=== PATIENT | female | born 2000 | race Caucasian/White ===

== ENCOUNTER 2022-12-16 15:35 | Emergency (ER) | payer OTHER, BC, SELFPAY ==
[2022-12-16 15:46] VITALS: BP 102/62; PULSE 81; RESP 16; TEMP 36.6; O2SAT 100
--- NOTE | 2022-12-16 15:47 | ED.FEMALEGU ---
HPI - Female Genitourinary General Chief complaint: Urogenital-Female Stated complaint: Urinary Problems/Pain Source: patient, family and RN notes reviewed History of Present Illness HPI Narrative: 22 yo F presents to urgent care with mom at side. Pt states she started to feel a discomfort in her genital region on . Pt reports it burning when she urinates and pain when she sits down or touches the area. Pt reports swelling and possible blisters. Denies any fevers, chills, abdominal pain, vomiting, or vaginal discharge. Related Data Allergies Allergy/AdvReac Type Severity Reaction Status Date / Time No Known Allergies Allergy Verified 12/16/22 15:44 Review of Systems Review of Systems: CONSTITUTIONAL: Denies fever, chills, or sweats. EYES: Denies visual changes, redness, or discharge. ENT: Denies otalgia and sore throat CARDIOVASCULAR: Denies chest pain, palpitations, or edema. RESPIRATORY: Denies cough or dyspnea. GASTROINTESTINAL: Denies abdominal pain, nausea, vomiting, or diarrhea. GENITOURINARY: danielle with urination, swelling and blisters to vaginal area SKIN: Denies rash or itching. MUSCULOSKELETAL: Denies back pain, joint pain, or myalgia. NEUROLOGIC: Denies headache, numbness, or weakness. Pertinent positives per HPI. PMFSH Comments At the time of my signature, I reviewed and agree with the nursing past medical, surgical, social, and family history. There is no relevant family history pertinent to the patient complaint. Exam Narrative: GENERAL: This is a well-nourished, well-developed patient, in no apparent distress. HEAD: normocephalic, atraumatic. EYES: Sclera clear/white. Vision is grossly intact. EARS: External ears normal, auditory canals clear and without drainage. Hearing grossly intact. NOSE: External nose normal with no obvious nasal discharge, nares without redness, no rhinorrhea. THROAT: Mucous membranes moist, posterior pharynx clear. NECK: Neck supple, non-tender without lymphadenopathy, masses or thyromegaly. CARDIOVASCULAR: Regular rate and rhythm without murmurs, gallops, or rubs. RESPIRATORY: Clear to auscultation. Breath sounds equal bilaterally. No wheezes, rales, or rhonchi. GASTROINTESTINAL: Abdomen soft, non-tender, nondistended. Bowel sounds are active. No hepato-splenomegaly, or palpable masses. No guarding. GENITOURINARY: multiple, edematous, erythremic, papules and blisters to labia minora and vaginal os, tender. SKIN: warm, intact with no suspicious lesions or rash, good texture and turgor. NEURO: awake, alert, and oriented to person, place and time. There were no obvious focal neurologic abnormalities. Course Course Level of Care: Express Care Visit Vital Signs Vital signs: Vital Signs Temperature 98 F 12/16/22 15:46 Pulse Rate 81 12/16/22 15:46 Respiratory Rate 16 12/16/22 15:46 Blood Pressure 102/62 12/16/22 15:46 Pulse Oximetry 100 12/16/22 15:46 Temperature 98 F 12/16/22 15:46 Pulse Rate 81 12/16/22 15:46 Respiratory Rate 16 12/16/22 15:46 Blood Pressure 102/62 12/16/22 15:46 Pulse Oximetry 100 12/16/22 15:46 reviewed MDM - Female Genitourinary MDM Narrative Medical decision making narrative: Take the antiviral medication as directed. May apply the topical lidocaine 3x/day for discomfort. Follow up with your net manager. Differential Diagnosis Differential diagnosis: Likely urinary tract infection, vaginitis and other (STI, HSV) Lab Data Attestation: I reviewed the patient's lab results. Critical Care Time Critical Care Time Critical Care Time: No Discharge Plan Discharge Clinical Impression: HSV (herpes simplex virus) infection Patient Disposition: Home, Self-Care Condition: Stable Instructions: Genital Herpes Infection (ED) Additional Instructions: Take the antiviral medication as directed. May apply the topical lidocaine 3x/day for discomfort. Follow up with your net manager.
== END 2022-12-16 16:10 | disposition home or self-care (01) ==
PROVIDERS: Emergency Provider Nurse Practitioner Family; PCP Family Medicine
DX: A60.00 Herpesviral infection of urogenital system, unspecified (principal)
CPT/HCPCS: 81003; 87255; 99203; G0463

== ENCOUNTER 2023-03-12 08:30 | Emergency (ER) | payer BC, SELFPAY ==
--- NOTE | 2023-03-12 08:37 | ED.URI ---
HPI - URI/Sore Throat General Chief Complaint: Upper Respiratory Infection Stated Complaint: Strep symptoms;Ear pain Time Seen by Provider: 03/12/23 09:18 Source: patient and RN notes reviewed Mode of arrival: ambulatory Limitations: no limitations History of Present Illness HPI Narrative: 22-year-old female presents with concern for sore throat, left ear pain that started last night. She reports painful swallowing. She reports low-grade temperature. She is spitting her saliva because of painful swelling. Reports she is able to swallow. MD elicited complaint: sore throat Related Data Allergies Allergy/AdvReac Type Severity Reaction Status Date / Time No Known Allergies Allergy Verified 12/16/22 15:44 Review of Systems Review of Systems: CONSTITUTIONAL: Denies malaise, low-grade fever. EYES: Denies visual changes, redness, or discharge. ENT: Reports painful swallowing left ear pain, and sore throat. CARDIOVASCULAR: Denies chest pain, palpitations, or edema. RESPIRATORY: Reports cough. Denies dyspnea. GASTROINTESTINAL: Denies abdominal pain, nausea, vomiting, diarrhea SKIN: Denies rash or itching. MUSCULOSKELETAL: Denies myalgia. NEUROLOGIC: Denies headache. All systems reviewed & are unremarkable except as noted in HPI and below PMFSH Comments At time of signature, agree with nursing past medical, surgical, social and family history. There is no relevant family history pertinent to the presenting complaint Exam Narrative: GENERAL: Nontoxic-appearing, well-nourished, and in no acute distress. HEAD: Normocephalic EYES: PERRLA, conjunctivae clear ENT: Nares clear. Mucous membranes moist. TM pearly [place] with sharp light reflex bilaterally; no tragal tenderness. Oropharynx erythematous without lesions. Tonsils mildly enlarged with copious amount of exudate, no drooling, no hoarseness, no trismus, uvula midline. NECK: Supple. No lymphadenopathy CHEST: Clear to auscultation, breath sounds equal. No wheezing, rhonchi, rales, or stridor. No respiratory distress, speaks in full sentences. HEART: Regular rate and rhythm. No murmur heard. SKIN: Warm, dry, no rash. NEURO: Alert and oriented x3. PSYCH: Normal mood and affect Course Course Emergency Course: Patient is aware of diagnosis, understands and agrees to treatment plan. Anticipatory guidance given. Patient agrees to follow-up as directed and is aware of reasons to seek care at the emergency department. Portions of this record may have been created with voice recognition software Level of Care: Express Care Visit Vital Signs Vital signs: Reviewed. MDM - URI/Sore Throat MDM Narrative Medical decision making narrative: Differential diagnosis considered: Webster virus, strep pharyngitis, allergic rhinitis, upper respiratory tract infection, sinusitis, rhinosinusitis, nasopharyngitis. viral pharyngitis, otitis media, otitis externa, pneumonia, bronchitis, viral cough syndrome, viral syndrome, and influenza. Exam findings show no acute concerns or changes; patient is non-toxic appearing and is in no distress. Patient is appropriate for outpatient treatment and follow-up. Lab Data Attestation: I reviewed the patient's lab results. Critical Care Time Critical Care Time Critical Care Time: No Discharge Plan Discharge Clinical Impression: Acute tonsillitis Patient Disposition: Home, Self-Care Condition: Stable Instructions: Antibiotic Form, Tonsillitis (ED) Additional Instructions: Your rapid strep swab was negative today at [facility]. However, because your tonsils with potentially infected I will started antibiotic for tonsillitis. If your tonsillitis is caused by a virus the body has to fight the virus off, antibiotics do not work for a virus. -Alternate Tylenol every 4 hours and Motrin every 6 hours per package directions for fever or pain. -Antihistamine medication such as Benadryl at night and Zyrtec during the day can help improve symptoms
[2023-03-12 08:44] VITALS: BP 102/67; PULSE 96; RESP 18; TEMP 37.7; O2SAT 99
== END 2023-03-12 09:29 | disposition home or self-care (01) ==
PROVIDERS: Emergency Provider Nurse Practitioner; PCP Family Medicine
DX: J03.90 Acute tonsillitis, unspecified (principal)
CPT/HCPCS: 87081; 87880; 99213; G0463

== ENCOUNTER 2024-02-27 16:57 | Emergency (ER) | payer OTHER, SELFPAY ==
--- NOTE | ~2024-02-27 | XR_ITS ---
EXAMINATION: XR chest 2V DATE: 02/27/2024 17:42 INDICATION: Cough and shortness of breath. TECHNIQUE: Frontal and lateral views of the chest were obtained. COMPARISON: None. FINDINGS: There is no pneumonia, pleural effusion, or pneumothorax. The heart size is normal. IMPRESSION: 1. No acute cardiopulmonary disease. Reviewed, dictated and finalized at location A. FACTURING PRODUCTION MANAGER
[2024-02-27 17:31] VITALS: BP 132/73; PULSE 83; RESP 16; TEMP 36.9; O2SAT 100
--- NOTE | 2024-02-27 17:34 | ED_ITS ---
HPI - URI/Sore Throat General Chief Complaint: Upper Respiratory Infection Stated Complaint: SOB/COUGH/WHEEZING Time Seen by Provider: 02/27/24 17:45 Source: patient Mode of arrival: ambulatory Limitations: no limitations History of Present Illness HPI Narrative: Yari is a 23-year-old female patient presenting to the clinic today with complaints of shortness of breath, cough, and wheezing x5 days. Patient reports that the shortness of breath has gotten worse over the last 24 hours. Is coughing up some green phlegm. Had low-grade fever and chills at the beginning of her illness however she is not having any symptoms now. MD elicited complaint: cough, nasal congestion and other (Shortness of breath, chest congestion, wheezing) Related Data Home Medications ?Medication ?Instructions ?Recorded ?Confirmed ?Last Taken ?Type drospirenone 3 mg-ethinyl tablet 02/27/24 Unknown History estradiol 0.02 mg tablet (Vestura (28)) Allergies Allergy/AdvReac Type Severity Reaction Status Date / Time No Known Allergies Allergy Verified 02/27/24 17:37 Review of Systems Review of Systems: Pertinent positives per HPI. Patient denies any rash, headache, visual changes, dizziness, chest pain, palpitations, nausea, vomiting, diarrhea, constipation, abdominal pain, or any urinary issues. PMFSH Comments At the time of my signature, I reviewed and agree with the nursing past medical, surgical, social, and family history. There is no relevant family history pertinent to the patient complaint. Exam Narrative: General: Well-developed, well nourished, in no apparent distress Head: Normocephalic, atraumatic Eyes: Pupils equally round and reactive to light bilaterally, EOM intact, sclera and conjunctive clear, no discharge, lids normal Ears: TMs intact and clear, ear canals clear, no drainage, grossly hearing norm al. Nose: Nares patent, clear nasal discharge, no inflammation, no sinus tenderness. Mouth: Oral pharynx without lesions or masses, good dentition, MMM. Neck: Supple, trachea midline, no enlargement of anterior or posterior cervical nodes, no thyroid masses or goiter palpable. Cardio: Regular rate and rhythm, s1 and s2 normal, no murmur appreciated. Resp: Clear to auscultation bilaterally, no rhonchi, rales, wheezing or rubs Course Course Emergency Course: Portions of this record may have been created with voice recognition software. Level of Care: Express Care Visit Vital Signs Vital signs: Vital Signs Temperature 36.9 C 02/27/24 17:31 Pulse Rate 83 02/27/24 17:31 Respiratory Rate 16 02/27/24 17:31 Blood Pressure 132/73 02/27/24 17:31 Pulse Oximetry 100 02/27/24 17:31 Temperature 36.9 C 02/27/24 17:31 Pulse Rate 83 02/27/24 17:31 Respiratory Rate 16 02/27/24 17:31 Blood Pressure 132/73 02/27/24 17:31 Pulse Oximetry 100 02/27/24 17:31 Vital signs reviewed MDM - URI/Sore Throat MDM Narrative Medical decision making narrative: At the time of visit patient is resting comfortably on the exam table. Patient appears to be nontoxic. Diagnostics: Chest x-ray was performed and was negative for any acute cardiopulmonary process. Plan: I suspect patient has bronchitis. Prescription for prednisone and albuterol inhaler was prescribed. Supportive measures were discussed with the patient and they voiced understanding discharge instructions and agrees to treatment plan. Return precautions reviewed Differential Diagnosis Differential diagnosis: Likely upper respiratory infection, otitis media, sinusitis, viral infection, bronchitis, influenza, pharyngitis and other (COVID) Imaging Data Radiologist's impression: ITS Impressions Chest X-Ray 02/27/24 17:46 IMPRESSION: 1. No acute cardiopulmonary disease. Discharge Plan Discharge Clinical Impression: Bronchitis Patient Disposition: Home, Self-Care Condition: Stable Instructions: Antibiotic Form, Acute Bronchitis (ED) Additional Instructions: Chest x-rays negative for any acute cardiopulmonary process Take prescription medications only as prescribed-prednisone and albuterol Increase fluids and stay well hydrated Tylenol/motrin for pain/fever Flonase and OTC antihistamines as directed Vicks vapor rub to open sinuses Sinus rinses for congestion Cepacol spray, cough drops, throat lozenges, warm tea with honey/lemon, gargle salt water to soothe throat BRAT diet for diarrhea Clear liquids x 24 hours then advance as tolerated for nausea/vomiting Go to the ED if you develop a worsening in your condition- high fever not controlled by Tylenol or Motrin, dehydration, weakness, lethargy, shortness of breath, or chest pain. Follow up with your PCP in 3-5 days if symptoms persist. Patient Language: Estonian Prescriptions: New prednisone 20 mg tablet 40 mg PO DAILY 5 Days Qty: 10 0RF albuterol sulfate 90 mcg/actuation HFA aerosol inhaler 2 puff inhalation Q4-6H PRN (Reason: shortness of breath or wheezing) 30 Days Qty: 8.5 0RF No Action acyclovir 400 mg tablet 400 mg PO TID Qty: 30 0RF lidocaine HCl [Lidocaine Viscous] 2 % solution 1 applic topical TID PRN (Reason: pain) Qty: 600 0RF amoxicillin 875 mg tablet 875 mg PO Q12H 10 Days Qty: 20 0RF drospirenone-ethinyl estradiol [Vestura (28)] 3-0.02 mg tablet Follow-up/Referrals: Judith,Lenka Martinez MD [Primary Care Provider] - Time of Disposition: 17:55 Quality NIHSS Nursing Documentation ED NIHSS nursing documentation: reviewed/agree
== END 2024-02-27 18:07 | disposition home or self-care (01) ==
PROVIDERS: Emergency Provider Nurse Practitioner Family; PCP Pediatrics Adolescent Medicine
DX: J40 Bronchitis, not specified as acute or chronic (principal)
CPT/HCPCS: 71046; 99213; G0463

== ENCOUNTER 2024-07-29 18:15 | Emergency (ER) | payer BC, SELFPAY ==
[2024-07-29 18:27] VITALS: BP 81/63; PULSE 106; RESP 18; TEMP 36.6
[2024-07-29 18:36] LABS: EDUAAPPEAR Cloudy; EDUABILI Negative (Negative); EDUABLOOD 1+ (Negative); EDUACOLOR1 Light/Pale; EDUAGLUCOSE Negative (Negative); EDUAKETONE Negative (Negative); EDUALEUKO 1+ (Negative); EDUANITRATE Negative (Negative); EDUAPROTEIN Negative (Negative); EDUAUROBILI 0.2
--- NOTE | 2024-07-29 19:01 | ED_ITS ---
HPI - Female Genitourinary General Chief complaint: Urogenital-Female Stated complaint: UTI SYMPTOMS Time Seen by Provider: 07/29/24 18:30 Source: patient Mode of arrival: ambulatory Limitations: no limitations History of Present Illness HPI Narrative: 23-year-old female presents with complaint of urinary frequency, pain and burning with wiping. History of herpes 2022. Treated with antiviral and symptoms improved. No outbreak since. All systems reviewed and negative except as noted above. Related Data Home Medications ?Medication ?Instructions ?Recorded ?Confirmed ?Last Taken ?Type drospirenone 3 mg-ethinyl tablet 02/27/24 Unknown History estradiol 0.02 mg tablet (Vestura (28)) Allergies Allergy/AdvReac Type Severity Reaction Status Date / Time No Known Allergies Allergy Verified 07/29/24 18:27 Review of Systems 2 Review of Systems: CONSTITUTIONAL: Denies fever, chills, or sweats. EYES: Denies visual changes, redness, or discharge. ENT: Denies rhinorrhea, congestion, sore throat, or otalgia. CARDIOVASCULAR: Denies chest pain, palpitations, or edema. RESPIRATORY: Denies cough or dyspnea. GASTROINTESTINAL: Denies abdominal pain, nausea, vomiting, or diarrhea. GENITOURINARY: Reports dysuria, discomfort with wiping. Hematuria. SKIN: Denies rash or itching. MUSCULOSKELETAL: Denies back pain, joint pain, or myalgia. NEUROLOGIC: Denies headache, numbness, or weakness. PSYCHIATRIC: Denies anxiety or depression. All other systems reviewed are negative, except as documented in HPI. PMFSH Comments At time of signature, agree with nursing past medical, surgical, social and family history. There is no relevant family history pertinent to the presenting complaint. Exam 2 Narrative: GENERAL: This is a well-nourished, well-developed patient, in no apparent distress. HEAD: normocephalic, atraumatic. EYES: PERRL. Sclera clear/white. Vision is grossly intact. EARS: External ears normal NOSE: External nose normal NECK: Neck supple, non-tender without lymphadenopathy, masses or thyromegaly. CARDIOVASCULAR: Regular rate and rhythm without murmurs, gallops, or rubs. RESPIRATORY: Clear to auscultation. Breath sounds equal bilaterally. No wheezes, rales, or rhonchi. SKIN: warm, Dry, intact with no suspicious lesions or rash, good texture and turgor. NEURO: awake, alert, and oriented to person, place and time. There were no obvious focal neurologic abnormalities. EXTREMITIES: No joint tenderness, effusion, or edema noted. : External Female Exam: lesion (Erythematous vesicular lesion, tender on palpation, herpes culture obtained) Female genitals images: 1. vesicular erythematous lesion Course Course Level of Care: Express Care Visit Vital Signs Vital signs: Vital Signs Temperature 36.6 C 07/29/24 18:27 Pulse Rate 106 H 07/29/24 18:27 Respiratory Rate 18 07/29/24 18:27 Blood Pressure 81/63 L 07/29/24 18:27 Temperature 36.6 C 07/29/24 18:27 Pulse Rate 106 H 07/29/24 18:27 Respiratory Rate 18 07/29/24 18:27 Blood Pressure 81/63 L 07/29/24 18:27 Reviewed MDM - Female Genitourinary MDM Narrative Medical decision making narrative: Patient tested positive for herpes in December of 2022. Was given an antiviral and completed medication. A week or 2 later she went to another clinic and was read swab and was negative. Patient thought that 1st positive result was a false positive. Did not think that she actually had the herpes virus. Never followed up with a outsole molder. Today patient comes in with vesicular lesions to labia. Herpes culture obtained. Recommend follow-up with outsole molder for further testing and evaluation. Explained herpes diagnosis to patient and precautions with sexual activity. Lab Data Labs: Lab Results 07/29/24 07/29/24 Range/Units 18:33 18:48 POC Urine Color Light/pale POC Urine Clarity Cloudy POC Urine pH 6.0 POC Ur Specif Bison 1.030 POC Urine Protein Negative (Negative) POC Ur Glucose (UA) Negative (Negative) POC Urine Ketones Negative (Negative) POC Urine Blood 1+ (Negative) POC Urine Nitrite Negative (Negative) POC Urine Bilirubin Negative (Negative) POC Urine Urobilinogen 0.2 POC U Leukocyte Esteras 1+ (Negative) Herpes Virus Source Pending Herpes Simplex Culture Pending Discharge Plan Discharge Clinical Impression: Herpes Urinary tract infection Qualifiers: Urinary tract infection type: site unspecified Hematuria presence: with hematuria Qualified Code(s): N39.0 - Urinary tract infection, site not specified Patient Disposition: Home Condition: Stable Instructions: Genital Herpes Infection (ED), Urinary Tract Infection in Women (ED) Additional Instructions: Take medications as prescribed. You were tested for herpes today. Results with take 3 to 5 days. I recommend following up with your outsole molder for lab work. Patient Language: Turkmen Prescriptions: New amoxicillin-pot clavulanate [Augmentin] 500-125 mg tablet 1 tablet PO BID 5 Days Qty: 10 0RF valacyclovir 1 gram tablet 1,000 mg PO DAILY 5 Days Qty: 5 0RF No Action drospirenone-ethinyl estradiol [Vestura (28)] 3-0.02 mg tablet Follow-up/Referrals: James,Candie Giles METAPHYSICS TEACHER [Primary Care Provider] - Time of Disposition: 18:48
== END 2024-07-29 19:00 | disposition home or self-care (01) ==
PROVIDERS: Emergency Provider Nurse Practitioner Family; PCP Nurse Practitioner Family
DX: B00.9 Herpesviral infection, unspecified (principal); N39.0 Urinary tract infection, site not specified; J45.909 Unspecified asthma, uncomplicated
CPT/HCPCS: 81003; 87086; 87140; 87255; 99213; G0463